=== PATIENT | female | born 1995 | race African-American/Black ===

== ENCOUNTER 2019-10-03 09:48 | Emergency (ER) | payer OTHER, SELFPAY ==
[2019-10-03 10:02] VITALS: BP 115/70; PULSE 110; RESP 16; TEMP 36.7; O2SAT 99
--- NOTE | 2019-10-03 10:18 | ED.EAR ---
HPI - Ear Problem General Chief complaint: Ear Stated complaint: right ear clogged/headache Time Seen by Provider: 10/03/19 10:18 Source: patient and RN notes reviewed History of Present Illness HPI Narrative: Patient is a 24-year-old female who presents the urgent care with complaints of right ear clogged. Patient states it is painful and causing a headache with some hearing loss. Patient states that started 1 to 2 days ago. States that she does use Q-tips daily. Patient is currently . Denies any other upper respiratory symptoms. No other acute complaints. No acute distress noted. Patient read the plan of care. Related Data Home Medications Medication Instructions Recorded Confirmed Iron 10/03/19 Tylenol 10/03/19 albuterol sulfate 10/03/19 Allergies Allergy/AdvReac Type Severity Reaction Status Date / Time No Known Allergies Allergy Mild Verified 06/05/10 01:22 Review of Systems Review of Systems: Narrative: CONSTITUTIONAL: Denies fever, chills, or sweats. EYES: Denies visual changes, redness, or discharge. ENT: Reports of right otalgia and decreased hearing CARDIOVASCULAR: Denies chest pain, palpitations, or edema. RESPIRATORY: Denies cough or dyspnea. GASTROINTESTINAL: Denies abdominal pain, nausea, vomiting, or diarrhea. GENITOURINARY: Denies dysuria or hematuria. SKIN: Denies rash or itching. MUSCULOSKELETAL: Denies back pain, joint pain, or myalgia. NEUROLOGIC: Reports of headache All other systems reviewed are negative, except as documented in HPI. PMFSH Comments At the time of my signature, I reviewed and agree with the nursing past medical, surgical, social, and family history. There is no relevant family history pertinent to the patient complaint. Exam Narrative: Exam Narrative: GENERAL: This is a well-nourished, well-developed patient, in no apparent distress. HEAD: normocephalic, atraumatic. EYES: PERRL. Sclera clear/white. Vision is grossly intact. EARS: External ears normal, auditory canals clear and without drainage, unable to visualize bilateral TMs due to cerumen impaction NOSE: External nose normal with no obvious nasal discharge, nares without redness, no rhinorrhea. THROAT: Mucous membranes moist, posterior pharynx clear. NECK: Neck supple CARDIOVASCULAR: Regular rate and rhythm without murmurs, gallops, or rubs. RESPIRATORY: Clear to auscultation. Breath sounds equal bilaterally. No wheezes, rales, or rhonchi. SKIN: warm, intact with no suspicious lesions or rash, good texture and turgor. NEURO: awake, alert, and oriented to person, place and time. There were no obvious focal neurologic abnormalities. EXTREMITIES: No clubbing, cyanosis, or edema. Course Vital Signs Vital signs: Vital Signs Temperature 98.0 F 10/03/19 10:02 Pulse Rate 110 H 10/03/19 10:02 Respiratory Rate 16 10/03/19 10:02 Blood Pressure 115/70 10/03/19 10:02 Pulse Oximetry 99 10/03/19 10:02 Temperature 98.0 F 10/03/19 10:02 Pulse Rate 110 H 10/03/19 10:02 Respiratory Rate 16 10/03/19 10:02 Blood Pressure 115/70 10/03/19 10:02 Pulse Oximetry 99 10/03/19 10:02 Reviewed Procedures Ear Wax Removal Both Ears: Cerumenolytic Used: other (Peroxide and warm water) Results: Re-examined: cerumen removed completely TM Examination: TM(s) intact, normal appearance Patient Tolerated Procedure: well Complications: no problems Additional Comments: Bilateral ears irrigated. No foreign body with the exception of cerumen removed. TMs appear within normal limits. Mild erythema and edema to the right ear canal without drainage. Patient tolerated well. Medical Decision Making MDM Narrative Medical decision making narrative: Advised the patient not to put anything in the ear such as Q-tips, water, peroxide. Use eardrops to the right ear for 3 days as directed. May use a warm wash rag as needed for comfort. Follow-up with PCP within 2 to 5 days or
== END 2019-10-03 10:55 | disposition home or self-care (01) ==
PROVIDERS: Emergency Provider Nurse Practitioner Family
DX: O99.89 Other specified diseases and conditions complicating pregnancy, childbirth and the puerperium (principal); H61.23 Impacted cerumen, bilateral; H60.501 Unspecified acute noninfective otitis externa, right ear; Z3A.00 Weeks of gestation of pregnancy not specified; O99.019 Anemia complicating pregnancy, unspecified trimester; O99.519 Diseases of the respiratory system complicating pregnancy, unspecified trimester; J45.909 Unspecified asthma, uncomplicated
CPT/HCPCS: 69209; 99213; G0463

== ENCOUNTER 2022-07-14 11:09 | Emergency (ER) | payer OTHER, SELFPAY ==
--- NOTE | 2022-07-14 11:14 | ED.URI ---
HPI - URI/Sore Throat General Chief Complaint: Upper Respiratory Infection Stated Complaint: Sore Throat/Ear Irritation/Headache Time Seen by Provider: 07/14/22 11:13 Source: patient Mode of arrival: ambulatory Limitations: no limitations History of Present Illness HPI Narrative: Sandra is a 27-year-old female patient presenting to the clinic today with complaints of sore throat, ear pain, and headache x 3 days . She reports no fever or chills. States her daughter is also been sick at home complaining of some ear pain and swollen lymph nodes MD elicited complaint: sore throat and nasal congestion Related Data Allergies Allergy/AdvReac Type Severity Reaction Status Date / Time No Known Allergies Allergy Mild Verified 07/14/22 11:24 Review of Systems Review of Systems: Pertinent positives per HPI. Patient denies any fever, chills, rash, headache, visual changes, dizziness, cough, shortness of breath, chest pain, palpitations, nausea, vomiting, diarrhea, constipation, abdominal pain, or any urinary issues. PMFSH Comments At the time of my signature, I reviewed and agree with the nursing past medical, surgical, social, and family history. There is no relevant family history pertinent to the patient complaint. Exam Narrative: General: Well-developed, well nourished, in no apparent distress Head: Normocephalic, atraumatic Eyes: Pupils equally round and reactive to light bilaterally, EOM intact, sclera and conjunctive clear, no discharge, lids normal Ears: TMs intact and clear, ear canals ceremonious, no drainage, grossly hearing normal. Nose: Nares patent, clear nasal discharge, moderate inflammation, no sinus tenderness. Mouth: Oral pharynx without lesions or masses, good dentition, MMM. oropharynx red with bilateral tonsil swelling and white exudate on the left tonsil Neck: Supple, trachea midline, enlargement of anterior cervical nodes, no thyroid masses or goiter palpable. Cardio: Regular rate and rhythm, s1 and s2 normal, no murmur appreciated. Resp: Clear to auscultation bilaterally, no rhonchi, rales, wheezing or rubs Course Course Emergency Course: Portions of this record may have been created with voice recognition software. Level of Care: Express Care Visit Vital Signs Vital signs: Vital Signs Temperature 37.7 C H 07/14/22 11:20 Pulse Rate 101 H 07/14/22 11:20 Respiratory Rate 16 07/14/22 11:20 Blood Pressure 111/79 07/14/22 11:20 Pulse Oximetry 98 07/14/22 11:20 Oxygen Delivery Room Air 07/14/22 11:20 Temperature 37.7 C H 07/14/22 11:20 Pulse Rate 101 H 07/14/22 11:20 Respiratory Rate 16 07/14/22 11:20 Blood Pressure 111/79 07/14/22 11:20 Pulse Oximetry 98 07/14/22 11:20 Oxygen Delivery Room Air 07/14/22 11:20 Vital signs reviewed MDM - URI/Sore Throat MDM Narrative Medical decision making narrative: At the time of visit patient is resting comfortably on the exam table. Strep screen was negative in the clinic today. I suspect patient has exudative pharyngitis /URI. Prescription for prednisone was sent to the pharmacy. Will send strep for culture. Supportive measures were discussed with the patient she voiced understanding of discharge instructions and agrees to treatment plan. Differential Diagnosis Differential diagnosis: Likely upper respiratory infection, otitis media, sinusitis, viral infection, bronchitis, influenza, pharyngitis and other (COVID) Lab Data Labs: Strep Screen Presumptive Negative *(Reference Range: Negative)* Discharge Plan Discharge Clinical Impression: Exudative pharyngitis Upper respiratory infection Qualifiers: URI type: unspecified URI Qualified Code(s): J06.9 - Acute upper respiratory infection, unspecified Patient Disposition: Home, Self-Care Condition: Stable Instructions: Antibiotic Form, Pharyngitis (ED), Upper Respiratory Infection (ED) Good
[2022-07-14 11:20] VITALS: BP 111/79; PULSE 101; RESP 16; TEMP 37.7; O2SAT 98
== END 2022-07-14 11:50 | disposition home or self-care (01) ==
PROVIDERS: Emergency Provider Nurse Practitioner Family
DX: J02.9 Acute pharyngitis, unspecified (principal); J06.9 Acute upper respiratory infection, unspecified; J45.909 Unspecified asthma, uncomplicated
CPT/HCPCS: 87081; 87880; 99213; G0463